=== PATIENT | female | born 1955 | race Caucasian/White ===

== ENCOUNTER → 2017-10-30 08:37 | Outpatient (CLI) | payer OTHER, SELFPAY ==
--- NOTE | 2017-10-30 08:48 | XR_ITS ---
XR knee LT 4V HISTORY: ITS.REASON: left knee pain ORDERING PHYSICIAN: Joseph Taylor MD PATIENT AGE: 62 years COMPARISON: None FINDINGS: Mild osteoarthritic changes are present at the patellofemoral joint with some decrease in the joint space on the patellar view. No other significant anomalies are evident. IMPRESSION: Mild osteoarthritis of the patellofemoral joint
--- NOTE | 2017-10-30 10:25 | XR_ITS ---
XR hip LT 2-3V w/pelvis HISTORY: ITS.REASON: left hip pain ORDERING PHYSICIAN: Joseph Taylor MD PATIENT AGE: 62 years COMPARISON: None FINDINGS: The left hip has an unremarkable appearance. The joint space is well preserved. There is osteosclerosis of the iliac aspect of the SI joints. There is a 9 mm calcification in inferior to the ischial tuberosity and could represent an old avulsion fracture. 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 Bilateral sclerosis of the SI joints. Old avulsion fracture at the left ischial tuberosity
== END ==
PROVIDERS: PCP Family Medicine; Visit Provider Orthopaedic Surgery
DX: M25.562 Pain in left knee (principal); M70.62 Trochanteric bursitis, left hip
CPT/HCPCS: 73502; 73564